=== PATIENT | female | born 1995 | race Caucasian/White ===

== ENCOUNTER 2016-11-01 09:01 | Emergency (ER) | payer OTHER ==
[2016-11-01] MEDS ORDERED: ONDANSETRON 4 MG/2 ML VIAL IVP STA (09:25)
[2016-11-01] MEDS ORDERED: SODIUM CHLORIDE 0.9% 1,000 ML IV ONE ×2 (09:25)
[2016-11-01] MEDS ORDERED: ONDANSETRON 4 MG/2 ML VIAL ONE (09:51)
[2016-11-01] MEDS ORDERED: ACETAMINOPHEN 325 MG TABLET PO STA (11:10)
[2016-11-01] MEDS ORDERED: KETOROLAC 60 MG/2 ML VIAL IVP STA (11:10)
[2016-11-01] MEDS ORDERED: ACETAMINOPHEN 325 MG TABLET PO ONE (11:14)
[2016-11-01] MEDS ORDERED: KETOROLAC 30 MG/ML VIAL ONE (11:14)
== END 2016-11-01 13:08 | disposition home or self-care (01) ==
DX: R55 Syncope and collapse (principal); R00.1 Bradycardia, unspecified; R51 Headache
CPT/HCPCS: 36415; 70450; 71020; 80053; 81001; 81025; 83690; 84443; 85025; 93005; 93010; 96361; 96374; 96375; 99284; A9270

== ENCOUNTER 2016-11-12 21:49 | Emergency (ER) | payer OTHER ==
[2016-11-12] MEDS ORDERED: metroNIDAZOLE 250 MG TABLET PO ONE (22:36)
[2016-11-12] MEDS ORDERED: HYDROcod/ACET 5/325 Prepack 6 PO ONE (22:36)
== END 2016-11-13 01:04 | disposition home or self-care (01) ==
DX: K92.1 Melena (principal)